=== PATIENT | male | born 1990 | race Hispanic/Latino ===

== ENCOUNTER 2022-10-19 20:01 | Emergency (ER) | payer SELFPAY ==
[2022-10-19] MEDS ORDERED: HYDROcodone/Acetaminophen 5/325 mg Tablet ONE (20:38)
== END 2022-10-19 20:43 | disposition home or self-care (01) ==
LOC: CSHERS 20:01
DX: K04.7 Periapical abscess without sinus (principal); K02.9 Dental caries, unspecified
CPT/HCPCS: 99282